=== PATIENT | male | born 1935 | race Caucasian/White ===

== ENCOUNTER 2017-02-21 11:13 | Emergency (ER) | payer MEDICARE, BC ==
[~2017-02-21 11:13] MED LIST: AMARYL4 M1 PO; ASPIRIN EC81 MG PO; AVODART0.5 M1 PO; CALCIUM600 M1 PO; CHLORTHALIDONE25 M1 PO; COZAAR100 M1 PO; FISH OIL300 M1 PO; FLECAINIDE ACET50 M1 PO; IRON159 M1 PO; IRON325 M3 PO; LISINOPRIL-HCT1 EAC2 PO; MULTIVITAMINS1 EAC6 PO; RANEXA500 M1 PO; TOPROL XL25 M1 PO; VITAMIN D35000 UNI3 PO; XARELTO20 M1 PO
[2017-02-21] MEDS ORDERED: SYNTHROID88 MC1 PO (11:36)
[2017-02-21] MEDS ORDERED: TERAZOSIN HCL5 MG PO (11:38)
[2017-02-21] MEDS ORDERED: [UNRECOGNIZED DRUG - OTHER] PO (12:05)
[2017-02-21] MEDS ORDERED: [UNRECOGNIZED DRUG - OTHER] PO (12:06)
[2017-02-21] MEDS ORDERED: VITAMIN B-121000 MC1 PO (12:08)
[2017-02-21] MEDS ORDERED: PROBIOTIC1 EA10 PO (12:08)
[2017-02-21] MEDS ORDERED: [UNRECOGNIZED DRUG - OTHER] PO (12:11)
[2017-02-21 12:46] LABS: BASO % 0.3 % (0-2); EOS % 1.4 % (0-7); EOSINOPHIL ABSOLUTE COUNT 0.2 tho/cmm (0.0-0.7); HCT-HEMATOCRIT 38.4 % (36.0-53.5); HGB-HEMOGLOBIN 13.5 gm/dl (13.5-17.0); IMMATURE GRANULOCYTES ABSOLUTE 0.01 tho/cmm (0-0.03); IMMATURE GRANULOCYTES PERCENT 0.1 % (0-0.3); LYMPH % 16.8 % (20-45); LYMPH ABSOLUTE COUNT 1.9 tho/cmm (0.8-4.5); MCH (MEAN CORPUSCULAR HGB) 31.7 pg (28.0-32.0); MCHC MEAN CORPUSCULAR HGB CONC 35.2 % (32.0-36.0); MCV (MEAN CELL VOLUME) 90.1 fl (82.0-96.0); MEAN PLATELET VOLUME 9.5 cmc (9.4-12.4); MONO % 6.4 % (0-12); MONOCYTE ABSOLUTE COUNT 0.7 tho/cmm (0.0-1.2); NEUTROPHIL ABSOLUTE COUNT 8.6 tho/cmm (1.6-8.0); NEUTROPHIL-AUTOMATED 8.6 tho/cmm (1.6-8.0); PLATELET COUNT 246 tho/cmm (150-450); RED BLOOD COUNT 4.26 mil/cmm (4.40-5.70); RED CELL DISTRIBUTION WIDTH 13.8 % (12.4-16.4); WHITE BLOOD COUNT 11.5 tho/cmm (4.0-10.0)
[2017-02-21 13:00] LABS: ALB/GLOB RATIO 0.8 (0.8-2.0); ALBUMIN 3.4 g/dl (3.5-5.0); ALKALINE PHOSPHATASE 62 U/L (33-138); ALT/SGPT 26 U/L (12-78); ANION GAP 13 mmol/L (0-20); AST/SGOT 17 U/L (10-40); BILIRUBIN,TOTAL 0.4 mg/dl (0.0-1.5); BLOOD UREA NITROGEN 27 mg/dl (6-24); CALCIUM 8.7 mg/dl (8.5-10.5); CARBON DIOXIDE-VENOUS 28 mmol/L (22-32); CHLORIDE 101 mmol/l (96-110); CREATININE 1.34 mg/dl (0.60-1.30); GLUCOSE 294 mg/dL (70-110); MAGNESIUM 1.9 mg/dl (1.8-2.6); POTASSIUM 3.8 mmol/L (3.7-5.1); SODIUM 138 mmol/L (135-145); eGFR VALUE FOR BLACK 57 mL/Min
== END 2017-02-21 14:46 ==
LOC: EDMED 11:13
PROVIDERS: Emergency Medicine
DX: R55 Syncope and collapse (principal); S00.03XA Contusion of scalp, initial encounter; I48.91 Unspecified atrial fibrillation; E11.9 Type 2 diabetes mellitus without complications; I10 Essential (primary) hypertension; I48.0 Paroxysmal atrial fibrillation; M19.90 Unspecified osteoarthritis, unspecified site; W19.XXXA Unspecified fall, initial encounter
CPT/HCPCS: J7030